=== PATIENT | male | born 1995 | race Caucasian/White ===

== ENCOUNTER 2017-05-07 22:34 | Inpatient (IN) | payer BC ==
[~2017-05-07] VITALS: Ht 185.4 cm; Wt 109.9 kg
[2017-05-08 03:03] LABS: PLATELET COUNT 203 x10^3mcL (130-400); RED CELL DISTRIBUTION WIDTH 11.8 % (11.5-14.5)
[2017-05-08 03:20] LABS: CALCIUM 9.2 mg/dL (8.5-10.1); CARBON DIOXIDE 32.8 mmol/L (21-32); CHLORIDE SERUM 103 mmol/L (98-107); CREATININE SERUM 1.2 mg/dL (0.7-1.3); GFR1 > 60 mL/min; GLUCOSE SERUM 117 mg/dL (74-106); POTASSIUM SERUM 3.5 mmol/L (3.5-5.1); SODIUM SERUM 140 mmol/L (136-145)
[2017-05-08 03:25] LABS: ALBUMIN 4.5 g/dL (3.4-5.0); ALKALINE PHOSPHATASE 88 U/L (46-116); ALT/SGPT 43 U/L (16-63); AST/SGOT 27 U/L (15-37)
[2017-05-08 03:28] LABS: BASOPHIL % 3.3 % (0-2)
[2017-05-08 03:29] LABS: TOTAL PROTEIN, SERUM 8.4 g/dL (6.4-8.2)
[2017-05-08 03:42] LABS: PHOSPHOROUS 3.8 mg/dL (2.5-4.9)
[2017-05-08 03:46] LABS: T3 TOTAL 1.26 ng/mL
[2017-05-08 03:57] VITALS: BP 125/59
[2017-05-08 04:03] LABS: FREE T4 1.07 ng/dL (0.76-1.46); FREE THYROXINE INDEX 2.8 ug/dL (1.4-4.5)
[2017-05-08 09:57] VITALS: BP 112/57
[2017-05-08 12:54] VITALS: BP 112/62
[2017-05-08 18:16] VITALS: BP 118/62
[2017-05-08 21:42] VITALS: BP 109/62
[2017-05-09 05:50] VITALS: BP 106/47
[2017-05-09 07:06] LABS: BASOPHIL % 0.5 % (0-2); PLATELET COUNT 178 x10^3mcL (130-400); RED CELL DISTRIBUTION WIDTH 12.4 % (11.5-14.5)
[2017-05-09 07:28] LABS: CALCIUM 8.7 mg/dL (8.5-10.1); CARBON DIOXIDE 29.5 mmol/L (21-32); CHLORIDE SERUM 103 mmol/L (98-107); CHOLESTEROL 176 mg/dL (<200); CHOLESTEROL/HDL RATIO 4.3; CREATININE SERUM 1.1 mg/dL (0.7-1.3); GFR1 > 60 mL/min; GLUCOSE SERUM 96 mg/dL (74-106); HDL CHOLESTEROL 41 mg/dL (40-60); MAGNESIUM 1.8 mg/dL (1.8-2.4); PHOSPHOROUS 4.2 mg/dL (2.5-4.9); POTASSIUM SERUM 3.9 mmol/L (3.5-5.1); SODIUM SERUM 138 mmol/L (136-145); TRIGLYCERIDES 103 mg/dL (<150)
[2017-05-09 09:49] VITALS: BP 102/46
[2017-05-09] MEDS ORDERED: FLOVENT HF0.11 MG/A1 INH (11:22)
[2017-05-09] MEDS ORDERED: LANSOPRAZOLE30 M2 PO (11:24)
[2017-05-09 11:50] VITALS: BP 102/46
== END 2017-05-09 13:04 | disposition home or self-care (01) | DRG 395 ==
LOC: ED 22:34 → DU 05-08 02:51
PROVIDERS: Emergency Medicine; Internal Medicine; ADMIT Family Medicine
PROC: 0DB78ZX Excision of Stomach, Pylorus, Via Natural or Artificial Opening Endoscopic, Diagnostic (ICD-10-PCS; 2017-05-08)
PROC: 0DC38ZZ Extirpation of Matter from Lower Esophagus, Via Natural or Artificial Opening Endoscopic (ICD-10-PCS; 2017-05-08)
PROC: 0DB98ZX Excision of Duodenum, Via Natural or Artificial Opening Endoscopic, Diagnostic (ICD-10-PCS; principal; 2017-05-08 09:00)
DX: T18.128A Food in esophagus causing other injury, initial encounter (principal); K20.0 Eosinophilic esophagitis; E78.5 Hyperlipidemia, unspecified; X58.XXXA Exposure to other specified factors, initial encounter; Y93.89 Activity, other specified; Y92.89 Other specified places as the place of occurrence of the external cause
CPT/HCPCS: 43239; 84439; J1200; J1610; J2250; J2310; J2405; J3010; J3490; J7030

== ENCOUNTER 2017-09-10 16:31 | Emergency (ER) | payer BC ==
[~2017-09-10] VITALS: Ht 185.4 cm; Wt 99.3 kg
[~2017-09-10 16:31] MED LIST: FLOVENT HF0.11 MG/A1 INH; LANSOPRAZOLE30 M2 PO
[2017-09-10 16:37] VITALS: Ht 185.4 cm; Wt 99.3 kg
[2017-09-10 18:22] VITALS: BP 121/65
== END 2017-09-10 18:22 | disposition home or self-care (01) ==
LOC: ED 16:31
DX: K21.9 Gastro-esophageal reflux disease without esophagitis (principal)